=== PATIENT | female | born 1945 | race Caucasian/White ===

== ENCOUNTER 2017-04-11 05:34 | Inpatient (IN) | payer MEDICARE ==
[~2017-04-11] VITALS: Ht 167.6 cm; Wt 72.7 kg
[2017-04-11 06:46] LABS: BASOPHILS 0.1 % (0-2); EOSINOPHILS 0 % (0-7); HEMOGLOBIN 8.7 g/dL (12-16); IMMATURE GRANULOCYTES 0.4 % (0-5); LYMPHOCYTES 2.2 % (15-50); MCH 31.4 pg (26.0-34.0); MCHC 32.2 g/dL (31.0-37.0); MCV 97.5 fL (80.0-100.0); MEAN PLATELET VOLUME 10.6 fL (7.4-10.4); MONOCYTES 1.9 % (2-11); NEUTROPHILS 95.4 % (40-80); PLATELET COUNT 90 10x3/uL (130-400); RBC 2.77 10x6/uL (4.00-5.40); RDW 16.6 % (11.5-14.5); WBC 13.8 10x3/uL (4.8-10.8)
[2017-04-11 06:57] LABS: APPEARANCE HAZY (CLEAR); BILIRUBIN 3+ (NEGATIVE); COLOR AMBER (YELLOW); GLUCOSE NEGATIVE (NEGATIVE); KETONE NEGATIVE (NEGATIVE); LEUKOCYTE ESTERASE TRACE (NEGATIVE); NITRITE NEGATIVE (NEGATIVE); PROTEIN NEGATIVE (NEGATIVE); SPECIFIC GRAVITY 1.015 (1.005-1.020)
[2017-04-11 06:58] LABS: BACTERIA MODERATE /hpf (NONE SEEN); MUCUS <1+ /lpf (NONE SEEN); RED CELLS - URINE 0-5 /hpf (0-5)
[2017-04-11 07:07] LABS: ALBUMIN 2.4 g/dL (3.4-5.0); ANION GAP 16.6 mmol/L (8-16); BILIRUBIN - TOTAL 5.81 mg/dL (0.2-1.3); CALCIUM 8.4 mg/dL (8.5-10.1); CREATININE - SERUM 0.9 mg/dL (0.6-1.3); MAGNESIUM - SERUM 1.4 mg/dL (1.8-2.4); POTASSIUM - SERUM 3.6 mmol/L (3.5-5.1); PROTEIN - SERUM 6.5 g/dL (6.4-8.2)
[2017-04-11 07:11] LABS: PLATELET ESTIMATE DECREASED
[2017-04-11 07:42] LABS: AMYLASE - SERUM 13 U/L (25-115); LIPASE 35 U/L (73-393)
--- NOTE | 2017-04-11 10:34 | NUR ---
RECEIVED TO ROOM 2218 FROM ER VIA STRETCHER. SL TO R AC. BILI DRAINS TO R ABDOMEN X 2. ONE DRAIN TO BILI BAG AND OTHER TO MICHAEL BULB. COLOR JAUNDICED. MINA PATENT DRAINING BON COLORED URINE. GENERALIZED WEAKNESS. AT BEDSIDE.
[2017-04-11 11:34] VITALS: BP 87/35
[2017-04-11 11:47] VITALS: BP 96/41; Ht 167.6 cm; Wt 72.7 kg
--- NOTE | 2017-04-11 12:35 | NUR ---
1ST UNIT PRBC INFUSION STARTED AT 100 CC/HR. DENIES ANY NEEDS AT THIS TIME.
--- NOTE | 2017-04-11 14:45 | NUR ---
STATES SHE'S FEELING BETTER INSIDE. STATES THAT SHAKY FEELING AND PAIN IS BETTER AT THIS TIME.
--- NOTE | 2017-04-11 15:21 | NUR ---
CM CONTACTED [facility] BED CONTROL FOR TRANSFER OF PATIENT. [facility] WILL NOTIFY DR ALMODOVAR IF PATIENT WAS ACCEPTED OR NOT. WILL CONTINUE TO FOLLOW PATIENT. DAUGHTER, DR CONSTANTINE BARRAGAN'S ([phone]) WAS NOTIFIED AND UPDATED.
--- NOTE | 2017-04-11 15:24 | NUR ---
* Is the patient Alert and Oriented? Yes 0 * PCP JOAO 0 * Pharmacy [facility] [address] * Preadmission Environment Home with Family 0 * ADLs Partial Dependent 0 * Partial ADLs (Assistance needed) Ambulation 0 * Equipment Rolling Walker 0 * List name and contact numbers for known caregivers / representatives who currently or will assist patient after discharge: LUIS CUI [phone] DR LACYHER MANISHA (DAUGHTER) [phone] 0 * Additional services required to return to the preadmission environment? Yes 0 * Can the patient safely return to the preadmission environment? Yes 0 * Has this patient been hospitalized within the prior 30 days at any hospital? No 0 Grand Total: 0
--- NOTE | 2017-04-11 15:34 | NUR ---
ZENAIDA WITH BED CONTROL FROM [facility] CALLED ME BACK AND STATED THAT DR MARCUS IS THE ACCEPTING MD. FACESHEET FAXED AND SHE WILL CALL BACKWITH A ROOM NUMBER TO SHERRY PEPPER
--- NOTE | 2017-04-11 15:42 | NUR ---
SPOKE WITH GRETA VILLEDA REGISATUING PATIENTS TRANSFER. HE ASSURED ME THAT HE WOULD TAKE CARE OF THE [place] FORM
--- NOTE | 2017-04-11 16:14 | NUR ---
REPORT CALLED TO CALLI BUI RN AT [facility]. WILL TRANSFER BY AMBULANCE. NOTIFIED OF TRANSFER TODAY.
--- NOTE | 2017-04-11 18:29 | NUR ---
DC'D TO [facility]IA [facility] WITH BELONGINGS.
== END 2017-04-11 18:30 | disposition short-term general hospital (02) | DRG 690 ==
LOC: D.ER 05:34 → D.MS 10:27
PROVIDERS: Emergency Medicine; ADMIT Emergency Medicine
PROC: 0T9B70Z Drainage of Bladder with Drainage Device, Via Natural or Artificial Opening (ICD-10-PCS; principal; 2017-04-11)
DX: N39.0 Urinary tract infection, site not specified (principal); C23 Malignant neoplasm of gallbladder; C78.7 Secondary malignant neoplasm of liver and intrahepatic bile duct; C79.51 Secondary malignant neoplasm of bone; E86.0 Dehydration; D64.9 Anemia, unspecified; I10 Essential (primary) hypertension; I25.10 Atherosclerotic heart disease of native coronary artery without angina pectoris; E03.9 Hypothyroidism, unspecified; F41.8 Other specified anxiety disorders